=== PATIENT | male | born 1985 | race Caucasian/White ===

== ENCOUNTER 2020-09-10 00:57 | Emergency (ER) | payer OTHER ==
[~2020-09-10 00:57] MED LIST: Albuterol 0.083% 2.5 MG/3 ML Neb Soln ONE
[2020-09-10] MEDS: Albuterol/Ipratropium 3.0-0.5 MG/3 ML Neb Soln NEB STA (02:20)
--- NOTE | 2020-09-10 02:27 | EDM.PDOC ---
ED HPI GENERAL MEDICAL PROBLEM - General Chief Complaint: Respiratory Problem Stated Complaint: TROUBLE BREATHING Time Seen by Provider: 09/10/20 02:05 Source of Information: Reports: Patient History Limitations: Reports: No Limitations - History of Present Illness INITIAL COMMENTS - FREE TEXT/NARRATIVE: patient presented to the ER with a c/o nasal congestion and SOB x 1 day. He reports that over the last 24-48hrs - he started to experience a cough, nasal congestion, later spread down to his chest, and this evening started to feel SOB and chest tightness. Reports a h/o seasonal allergy - usually upper congestion, but this time it is worse. He also reports that his kids has been coughing. Denies smoking or exposure to COVID. upon arrival to the ER, his Sat was 98% on RA. Onset: Gradual Duration: Day(s): (1) Location: Reports: Chest - Related Data Allergies Allergy/AdvReac Type Severity Reaction Status Date / Time grass pollen Allergy Cough Verified 09/10/20 02:36 Home Meds: Home Meds Albuterol [Proventil Neb Soln] 2.5 mg NEB Q6HR #24 neb 09/10/20 [Rx] Azithromycin [Zithromax] 250 mg PO DAILY #5 tablet 09/10/20 [Rx] metFORMIN [Glucophage] 1,000 mg PO BIDMEALS 09/10/20 [History] methylPREDNISolone [Medrol Dose Pack] 84 mg PO DAILY #21 dospk 09/10/20 [Rx] Past Medical History HEENT History: Reports: Head Other HEENT History: pt s/p fall with small head injury Respiratory History: Reports: Asthma Musculoskeletal History: Reports: Back Pain, Chronic Psychiatric History: Reports: PTSD Social & Family History - Family History Family Medical History: Unobtainable ED ROS GENERAL - Review of Systems Review Of Systems: See Below Constitutional: Reports: Chills HEENT: Reports: No Symptoms Respiratory: Reports: Shortness of Breath, Wheezing, Cough Cardiovascular: Reports: No Symptoms GI/Abdominal: Reports: No Symptoms Musculoskeletal: Reports: No Symptoms Skin: Reports: No Symptoms Neurological: Reports: No Symptoms ED EXAM, GENERAL - Physical Exam Exam: See Below Exam Limited By: No Limitations General Appearance: Alert, WD/WN, No Apparent Distress Eye Exam: Bilateral Eye: EOMI Neck: Normal Inspection Respiratory/Chest: No Accessory Muscle Use, Respiratory Distress (mild), Wheezing Cardiovascular: Normal Peripheral Pulses, Regular Rate, Rhythm, No Edema, Tachycardia GI/Abdominal: Normal Bowel Sounds, Soft Neurological: Alert, Oriented Psychiatric: Normal Affect Course - Vital Signs Last Recorded V/S: Last Vital Signs Temp 38.0 C 09/10/20 02:54 Pulse 113 H 09/10/20 02:54 Resp 20 09/10/20 02:54 BP 148/101 H 09/10/20 01:07 Pulse Ox 97 09/10/20 02:54 - Orders/Labs/Meds Orders: Active Orders 24 hr Category Date Time Status RT Aerosol Therapy [RC] ASDIRECTED Care 09/10/20 02:25 Active RT Aerosol Therapy [RC] ASDIRECTED Care 09/10/20 03:03 Active RT Aerosol Therapy [RC] ASDIRECTED Care 09/10/20 03:03 Active Sodium Chloride 0.9% [Normal Saline] 1,000 ml Med 09/10/20 02:30 Active IV ASDIRECTED Medication Orders Sodium Chloride (Normal Saline) 1,000 mls @ 500 mls/hr IV ASDIRECTED KEVIN Last Admin: 09/10/20 02:50 Dose: 500 mls/hr Documented by: VANDANA Labs: Laboratory Tests 09/10/20 09/10/20 09/10/20 Range/Units 02:00 02:20 02:20 WBC 8.5 D (4.0-11.0) K/uL RBC 5.49 (4.50-6.50) M/uL Hgb 16.2 (13.0-18.0) g/dL Hct 45.3 (40.0-54.0) % MCV 83 (76-96) fL MCH 29.5 (27.0-32.0) pg MCHC 35.8 H (31.0-35.0) g/dL RDW 13.3 (11.0-16.0) % Plt Count 183 (150-400) K/uL MPV 10.5 H (6.0-10.0) fL Sodium 139 (136-145) mmol/L Potassium 4.1 (3.5-5.1) mmol/L Chloride 102 (98-107) mmol/L Carbon Dioxide 23.3 (21.0-32.0) mmol/L Anion Gap 17.8 H (5.0-15.0) mmol/L BUN 8 D (8-26) mg/dL Creatinine 1.03 (0.70-1.30) mg/dL Est Cr Clr Drug Dosing 111.96 mL/min Estimated GFR (MDRD) > 60 (>60) MLS/MIN BUN/Creatinine Ratio 7.8 (6-25) Glucose 135 H (74-100) mg/dL Calcium 8.2 L (8.5-10.1) mg/dL Total Bilirubin 0.5 (0.0-1.0) mg/dL AST 28 (15-37) U/L ALT 63 (12-78) U/L Alkaline Phosphatase 78 (46-116) U/L Total Protein 7.9 (6.4-8.2) g/dL Albumin 3.8 (3.4-5.0) g/dL Globulin 4.1 (2.2-4.2) g/dL Albumin/Globulin Ratio 0.9 (0.8-2.0) SARS CoV-2 RNA Rapid LISANDRO Negative Meds: Medications Generic Name Dose Route Start Last Admin Trade Name Freq PRN Reason Stop Dose Admin Sodium Chloride 1,000 mls @ 500 mls/hr 09/10/20 02:30 09/10/20 02:50 Normal Saline IV 500 mls/hr ASDIRECTED KEVIN Administration Discontinued Medications Generic Name Dose Route Start Last Admin Trade Name Freq PRN Reason Stop Dose Admin Acetaminophen 1,000 mg 09/10/20 04:05 Acetaminophen 500 Mg Tab PO 09/10/20 04:06 ONETIME ONE Albuterol 0.63 mg 09/10/20 03:02 Albuterol 0.021% 0.63 Mg/3 Ml Neb Soln NEB 09/10/20 03:03 ONETIME ONE Albuterol 2.5 mg 09/10/20 03:02 09/10/20 03:04 Albuterol 0.083% 2.5 Mg/3 Ml Neb Soln NEB 09/10/20 03:03 2.5 mg ONETIME ONE Administration Albuterol/Ipratropium 3 ml 09/10/20 02:24 09/10/20 02:20 Albuterol/Ipratropium 3.0-0.5 Mg/3 Ml Neb Soln NEB 09/10/20 02:25 3 ml NOW STA Administration Azithromycin 500 mg 09/10/20 04:32 Azithromycin 500 Mg Tab PO 09/10/20 04:33 ONETIME ONE Methylprednisolone Sodium Succinate 125 mg 09/10/20 03:02 09/10/20 03:05 Methylprednisolone Sodium Succinate 125 Mg/2 Ml Sdv IVPUSH 09/10/20 03:03 125 mg ONETIME ONE Administration - Re-Assessments/Exams Free Text/Narrative Re-Assessment/Exam: labs were ordered - including CBC, CMP and COVID - all WNL. DuoNeb was given - reports feeling much better. Another neb was repeated using albuterol IV solumedrol too patient reports that his symptoms improved by 90% will be d/cd home on a neb machine and treatment Departure - Departure Time of Disposition: 04:35 Disposition: Home, Self-Care 01 Condition: Good Clinical Impression: Acute asthma, Hay fever with asthma - Discharge Information *PRESCRIPTION DRUG MONITORING PROGRAM REVIEWED*: Not Applicable *COPY OF PRESCRIPTION DRUG MONITORING REPORT IN PATIENT SARMAD: Not Applicable Prescriptions: methylPREDNISolone [Medrol Dose Pack] 84 mg PO DAILY #21 dospk Albuterol [Proventil Neb Soln] 2.5 mg NEB Q6HR #24 neb Azithromycin [Zithromax] 250 mg PO DAILY #5 tablet Forms: ED Department Discharge Additional Instructions: - start taking the steroids and antibiotics as prescribed - use the neb treatment every 4-6 hrs as needed for shortness of breath - tylenol for fever - increase fluids intake - return to the ER if any concerns or worsening of symptoms Sepsis Event Note (ED) - Focused Exam Vital Signs: Vital Signs Temp Pulse Resp BP Pulse Ox 09/10/20 02:54 38.0 C 113 H 20 97 09/10/20 01:07 38.6 C H 117 H 30 H 148/101 H 97 - Problem List & Annotations (1) Acute asthma SNOMED Code(s): 834545607 Code(s): J45.909 - UNSPECIFIED ASTHMA, UNCOMPLICATED Status: Acute Priority: Medium (2) Hay fever with asthma SNOMED Code(s): 181078633 Code(s): J45.909 - UNSPECIFIED ASTHMA, UNCOMPLICATED Status: Acute Priority: Low - Problem List Review Problem List Initiated/Reviewed/Updated: Yes - My Orders Last 24 Hours: My Active Orders 09/10/20 02:25 RT Aerosol Therapy [RC] ASDIRECTED 09/10/20 02:30 Sodium Chloride 0.9% [Normal Saline] 1,000 ml IV ASDIRECTED 09/10/20 03:03 RT Aerosol Therapy [RC] ASDIRECTED RT Aerosol Therapy [RC] ASDIRECTED - Assessment/Plan Last 24 Hours: My Active Orders 09/10/20 02:25 RT Aerosol Therapy [RC] ASDIRECTED 09/10/20 02:30 Sodium Chloride 0.9% [Normal Saline] 1,000 ml IV ASDIRECTED 09/10/20 03:03 RT Aerosol Therapy [RC] ASDIRECTED RT Aerosol Therapy [RC] ASDIRECTED Plan: - start taking the steroids and antibiotics as prescribed - use the neb treatment every 4-6 hrs as needed for shortness of breath - tylenol for fever - increase fluids intake - return to the ER if any concerns or worsening of symptoms
[2020-09-10] MEDS: Sodium Chloride 0.9% 1,000 ML IV SCH (02:50)
[2020-09-10] MEDS ORDERED: Albuterol 0.021% 0.63 MG/3 ML Neb Soln NEB ONE (03:02)
[2020-09-10] MEDS: Albuterol 0.083% 2.5 MG/3 ML Neb Soln NEB ONE (03:04)
[2020-09-10] MEDS: methylPREDNISolone Sodium Succinate 125 MG/2 ML SDV IVPUSH ONE (03:05)
[2020-09-10] MEDS: Acetaminophen 500 MG Tab PO ONE (04:15)
[2020-09-10] MEDS: Azithromycin 500 MG Tab PO ONE (05:05)
== END 2020-09-10 05:15 | disposition home or self-care (01) ==
LOC: LB.ED 00:57
DX: J45.901 Unspecified asthma with (acute) exacerbation (principal); Z91.048 Other nonmedicinal substance allergy status; Z20.822 Contact with and (suspected) exposure to COVID-19
CPT/HCPCS: 36415; 80053; 85027; 87635; 96374; 99285; A9270; J2930; J7030; 99284; J7620-GY; U0002